=== PATIENT | female | born 1945 | race Caucasian/White ===

== ENCOUNTER 2016-12-04 05:05 | Emergency (ER) | payer OTHER | END 2016-12-04 05:35 | disposition home or self-care (01) | LOC: FER 05:05 | DX: R21 Rash and other nonspecific skin eruption (principal) | CPT/HCPCS: 99281-25 ==

== ENCOUNTER 2016-12-22 15:13 | Emergency (ER) | payer OTHER ==
[2016-12-22] MEDS ORDERED: methylPREDNISolone NA SUCC 125 MG/2 ML VIAL IVPB ONE (15:18)
[2016-12-22] MEDS ORDERED: FAMOTIDINE 20 MG/50 ML IVPB 50 ML IVPB ONE ×2 (15:18→15:24)
--- NOTE | 2016-12-22 15:20 | PDOC ---
Attending Attestation - Resident Resident Name: SangitaLalitha - ED Attending Attestation I have performed the following: I have examined & evaluated the patient, The case was reviewed & discussed with the resident, I agree w/resident's findings & plan, Exceptions are as noted - HPI HPI: 12/22/16 15:22 71y F hx of anxiety, hl, hypothyroidism presents for evaluation s/p bee sting. pt endorses swelling to her upper lip after a bee sting. no respiratory complaints including sob, voice changes, wheezing, abd pain/n/v, lightheadedness. on exam pt has angioedema to the upper lip, posterior pharynx is widely patent. lung exam normal without wheezing abd exam w/o any tendneress will give pt med therapy will oberve and if not worsening willdc consider epi if owrse or posterior phyarngeal involvement 12/22/16 16:22 pts swelling significantly improved will dc with pmd fu return precautions were discussed - Physicial Exam PE: 12/24/16 05:22 clarita stevens - Medical Decision Making 12/24/16 05:22 see above
[2016-12-22] MEDS ORDERED: methylPREDNISolone NA SUCC 125 MG/2 ML VIAL ONE (15:24)
--- NOTE | 2016-12-22 15:51 | PDOC ---
History of Present Illness - General Chief Complaint: Bite Stated Complaint: beesting Time Seen by Provider: 12/22/16 15:17 History Source: Patient Exam Limitations: No Limitations - History of Present Illness Initial Comments: This is a 71 yo female with h/o bee allergy with throat swelling who presents about 45 min after being stung by a bee in her left nostril and on her right hand. She has left-sided upper lip swelling which has been worsening since the incident. She denies throat swelling, tongue swelling, difficulty breathing, difficulty speaking, difficulty swallowing, nausea, vomiting, diarrhea, headache , dizziness, vision changes, new rash, or other symptoms. She took a 25 mg Benadryl PO without relief shortly after the incident. She has an old EpiPen but did not use it. Past History - Past Medical History Allergies/Adverse Reactions: Allergies Allergy/AdvReac Type Severity Reaction Status Date / Time bee pollen Allergy Verified 12/22/16 15:15 Sulfa (Sulfonamide Allergy Verified 12/22/16 15:15 Antibiotics) Home Medications: Ambulatory Orders Diphenhydramine HCl [Benadryl -] 25 mg PO ONCE PRN 12/22/16 Epinephrine [Adrenaclick] 0.3 mg IJ ONCE PRN #1 auto.injct 12/22/16 Prednisone [Deltasone -] 40 mg PO DAILY #14 tablet 12/22/16 Review of Systems - Review of Systems Constitutional: No: Chills, Fever, Unexplained wgt Loss HEENTM: Yes: Other (lip swelling). No: Nose Congestion, Throat Pain, Throat Swelling, Difficulty Swallowing Respiratory: No: Cough, Shortness of Breath, Wheezing Cardiac (ROS): No: Chest Pain, Palpitations ABD/GI: No: Constipated, Diarrhea, Nausea, Vomiting : No: Burning, Dysuria Musculoskeletal: No: Back Pain, Neck Pain Integumentary: Yes: Other (recent shingles). No: Bruising Neurological: No: Headache, Numbness, Tingling, Weakness, Dizziness Endocrine: No: Unexplained Weight Gain, Unexplained Weight Loss *Physical Exam - Physical Exam General Appearance: Yes: Nourished, Appropriately Dressed, Mild Distress, Other (pleasant older woman who is conversive and appropriately answering questions) HEENT: positive: EOMI, Normal Voice, Hearing Grossly Normal, Other (bilateral upper labial redness and swelling extending to the left mid-cheek (worsened from presentation at triage of isolated left upper labial redness and swelling)) . negative: Scleral Icterus (R), Scleral Icterus (L), Nasal Congestion Neck: positive: Trachea midline, Supple. negative: Tender, Rigid Respiratory/Chest: positive: Lungs Clear, Normal Breath Sounds. negative: Respiratory Distress, Crackles, Rhonchi, Stridor, Wheezing Cardiovascular: positive: Regular Rhythm, Regular Rate. negative: Murmur Gastrointestinal/Abdominal: positive: Normal Bowel Sounds, Soft. negative: Tender, Organomegaly, Pulsatile Mass, Guarding Musculoskeletal: positive: Normal Inspection. negative: Decreased Range of Motion, Vertebral Tenderness Extremity: positive: Normal Capillary Refill, Normal Inspection, Normal Range of Motion. negative: Tender, Cyanosis Integumentary: positive: Normal Color, Dry, Warm. 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 Stung on the left nostril and right hand, took a 25mg Benadryl, still had onset of upper lip and cheek swelling. On initial exam she has lip swelling and redness but no other symptoms. No wheezing, difficulty breathing, nausea/vomiting, dizziness, lightheadedness, headache, etc. Most likely this is simple allergic reaction with angioedema, less likely will progress to anaphylaxis but will observe closely. Ordered is IB Benadryl, SoluMedrol, famotidine. The patient is observed in the department for >2 hours. Her swelling has decreased since the administration of benadyrl, solumedrol, and famotidine. She has denied any additional symptoms aside from the upper lip swelling. She is appropriate for discharge home with her . Return precautions are discussed and she will come back to ED for any new/ worsening symptoms. She is prescribed a new EpiPen and discharged home. *DC/Admit/Observation/Transfer Diagnosis at time of Disposition: Angioedema Qualifiers: Encounter type: initial encounter Qualified Code(s): T78.3XXA - Angioneurotic edema, initial encounter Bee sting reaction Qualifiers: Encounter type: initial encounter Injury intent: accidental or unintentional Qualified Code(s): T63.441A - Toxic effect of venom of bees, accidental ( unintentional), initial encounter - Discharge Dispostion Disposition: HOME Condition at time of disposition: Stable Admit: No - Prescriptions Prescriptions: Epinephrine [Adrenaclick] 0.3 mg IJ ONCE PRN #1 auto.injct PRN Reason: Wheezing Prednisone [Deltasone -] 40 mg PO DAILY #14 tablet - Patient Instructions Printed Discharge Instructions: DI for General Allergic Reactions, DI for Angioedema Additional Instructions: You were seen in the ED today for lip swelling after bee stings. You did not have throat swelling or other symptoms concerning for a serious reaction like anaphylaxis. We gave you IV Benadryl, IV Pepcid, and an IV steroid which did help with your symptoms. We are sending a prescription for a generic EpiPen to your pharmacy in case you need it in the future. We are also sending a prescription for Prednisone 40 mg a day to your pharmacy. Please take this for only 3 days. Please follow up with your regular doctor as needed, or return to the ED with new or worsening symptoms like wheezing, difficulty breathing, throat swelling, tongue swelling, nausea, vomiting diarrhea, rash on your body, or low blood pressure/severe lightheadedness.
[2016-12-22 16:00] VITALS: TEMP 97.8; BMI 25.6
[2016-12-22 16:05] VITALS: BP 116/49; PULSE 55
== END 2016-12-22 17:53 | disposition home or self-care (01) ==
LOC: FER 15:13
PROC: 3E033GC Introduction of Other Therapeutic Substance into Peripheral Vein, Percutaneous Approach (ICD-10-PCS; principal; 2016-12-22)
PROC: 3E0333Z Introduction of Anti-inflammatory into Peripheral Vein, Percutaneous Approach (ICD-10-PCS; 2016-12-22)
DX: T63.441A Toxic effect of venom of bees, accidental (unintentional), initial encounter (principal); T78.3XXA Angioneurotic edema, initial encounter; Y92.9 Unspecified place or not applicable; F41.9 Anxiety disorder, unspecified; E03.9 Hypothyroidism, unspecified; E78.00 Pure hypercholesterolemia, unspecified; Z88.2 Allergy status to sulfonamides; Z91.038 Other insect allergy status
CPT/HCPCS: 99282-25